=== PATIENT | female | born 1985 | race Caucasian/White ===

== ENCOUNTER 2019-03-07 17:59 | Emergency (ER) | payer OTHER ==
[~2019-03-07] VITALS: Ht 162.6 cm; Wt 81.7 kg
[~2019-03-07 17:59] MED LIST: IBUP-1544 PO; PRENAT PO
[2019-03-07 18:04] VITALS: Ht 162.6 cm; Wt 81.7 kg
--- NOTE | 2019-03-07 18:49 | ERD ---
ER Documentation Chief Complaint Chief Complaint ABCESS ON RT SIDE OF ABDOMEN X 2 MONTHS HPI 33-year-old female, previously healthy, presents the emergency department, complaining of worsening of erythema on an area of a cyst, located in the abdominal wall. The patient denies fever, no chills, no intra-abdominal pain. ROS All systems reviewed and are negative except as per history of present illness. Medications Home Meds Active Scripts Ibuprofen* (Motrin*) 400 Mg Tab, 400 MG PO Q8, #20 TAB Prov:TAYLER DE GUZMAN MD 03/07/19 Cephalexin* (Keflex*) 500 Mg Capsule, 500 MG PO BID for 7 Days, CAP Prov:TAYLER DE GUZMAN MD 03/07/19 Sulfamethoxazole/Trimethoprim* (Bactrim Ds* Tablet) 1 Each Tablet, 1 TAB PO BID, #14 TAB Prov:TAYLER DE GUZMAN MD 03/07/19 Ibuprofen* (Ibuprofen*) 800 Mg Tablet, 800 MG PO Q6, #20 TAB 0 Refills Prov:MAYELIN ALARCON MD 02/01/16 Multivit/Min/Fol Ac/Iron/Pren* ( S*) 1 Tab Tab, 1 TAB PO DAILY, #100 TAB Prov:TORIN GAVIRIA MD 06/24/15 Allergies Allergies: Coded Allergies: No Known Allergies (Verified Allergy, Mild, 01/29/16) PMhx/Soc History of Surgery: Yes (CHOLECYSTECTOMY , APPY ) Anesthesia Reaction: No Hx Neurological Disorder: No Hx Respiratory Disorders: No Hx Cardiac Disorders: No Hx Psychiatric Problems: No Hx Miscellaneous Medical Probl: No Hx Alcohol Use: No Hx Substance Use: No Hx Tobacco Use: No FmHx Family History: No diabetes, No coronary disease Physical Exam Vitals Vital Signs Date Temp Pulse Resp B/P (MAP) Pulse Ox O2 O2 Flow FiO2 Time Delivery Rate 03/07/19 98.1 74 18 117/79 99 18:04 (92) Physical Exam Const: No acute distress Head: Atraumatic Eyes: Normal Conjunctiva ENT: Normal External Ears, Nose and Mouth. Neck: Full range of motion. No meningismus. Resp: Clear to auscultation bilaterally Cardio: Regular rate and rhythm, no murmurs Abd: Soft, non tender, non distended. Normal bowel sounds Skin: 1 x 1 cm well-defined area of erythema and induration in the abdominal wall, no definitive fluctuance, no petechiae or rashes Back: No midline or flank tenderness Ext: No cyanosis, or edema Neur: Awake and alert Psych: Normal Mood and Affect Procedures/MDM Vital signs stable. Differential diagnosis considered include but not limited to: Cellulitis, abscess, lipoma, neoplasm. Low suspicion for acute systemic infection. Physical examination and clinical presentation consistent most likely with infected cyst of the skin. During the ED course the patient remained stable, no new complaints. Treatment options and clinical impression discussed with the patient who agrees with conservative management. The patient is stable to be treated outpatient and will be discharged home, some side effects of prescribed medications (headache, rash, nausea, vomiting, diarrhea, drowsiness, habituation, bleeding, hypertension, interactions with other medications) were reviewed. The patient was instructed to follow up with the primary care provider in the n ext 48h. If symptoms persist, worsen or new symptoms develop, then patient should return to the ED immediately. Instructions explained and given directly by me to the patient [in [place]] with acknowledgment and demonstrated understanding. Disclaimer: Inadvertent spelling and grammatical errors are likely due to EHR/dictation software use and do not reflect on the overall quality of patient care. Also, please note that the electronic time recorded on this note does not necessarily reflect the actual time of the patient encounter. Departure Diagnosis: Primary Impression: Infected cyst of skin Condition: Stable Additional Instructions: Thank you very much for allowing us to participate in your care. Your health and safety is our top priority at [facility]. The evaluation in the emergency department has been done to rule out an acute emergency. Chronic, [id number] conditions may have not been evaluated; therefore, you need to follow up with a primary care provider in the next 48h. If symptoms persist, worsen or new symptoms develop, then patient should return to the ED immediately. Call your primary care doctor TOMORROW for an appointment during the next 2-4 days and bring all the information provided. Have prescriptions filled and follow precisely the directions on the label. If the symptoms get worse and your provider is unavailable, return to the Emergency Department immediately. TAYLER DE GUZMAN MD Mar 07, 2019 18:49
[2019-03-07] MEDS ORDERED: SULF1TAB31 PO (18:52)
[2019-03-07] MEDS ORDERED: IBUP-1561 PO (18:52)
[2019-03-07] MEDS ORDERED: CEPH-443 PO (18:52)
== END 2019-03-08 07:38 | disposition home or self-care (01) ==
LOC: E/R 17:59
DX: L02.211 Cutaneous abscess of abdominal wall (principal)
CPT/HCPCS: 99283